=== PATIENT | female | born 1990 | race Two or more races ===

== ENCOUNTER 2017-05-15 08:14 | Day surgery (SDC) | payer OTHER ==
[~2017-05-15 08:14] MED LIST: CLINDAMYCIN 600 MG/D5W (PMX) 50 ML IVPB; SOD CHLORIDE 0.9% 1,000 ML IV
[2017-05-15] MEDS ORDERED: FENTAnyl 50 MCG/ML VIAL (12:33)
[2017-05-15] MEDS ORDERED: HYDROmorphONE (0.2 MG/ML) 10ML SYG IV ×3 (13:00)
[2017-05-15] MEDS ORDERED: DIPHENHYDRAMINE 50 MG INJ IV (13:00)
[2017-05-15] MEDS ORDERED: ROCURONIUM 50 MG INJ (13:00)
[2017-05-15] MEDS ORDERED: SUGAMMADEX SODIUM 200 MG/2 ML VIAL IV (13:00)
[2017-05-15] MEDS ORDERED: ONDANSETRON 4 MG INJ IV (13:00)
[2017-05-15] MEDS ORDERED: FENTAnyl 50 MCG/ML VIAL IV ×2 (13:00)
[2017-05-15] MEDS ORDERED: PROPOFOL 20 ML (13:00)
[2017-05-15] MEDS ORDERED: CLINDAMYCIN 900 MG/D5W (PMX) 50 ML IVPB (13:00)
[2017-05-15] MEDS ORDERED: SUCCINYLCHOLINE CHLORIDE 100 MG/5 ML SYG IV (13:00)
[2017-05-15] MEDS ORDERED: MEPERIDINE 25 MG INJ IV (13:00)
[2017-05-15] MEDS ORDERED: LIDOCAINE 2% (SDV) 5 ML INJ (13:00)
[2017-05-15] MEDS ORDERED: METOCLOPRAMIDE 10 MG INJ IV (13:00)
[2017-05-15] MEDS ORDERED: HYDROCODONE/APAP (5/325) TAB PO (13:30)
[2017-05-15] MEDS: BUPIVACAINE 0.25% (MPF) 30 ML INJ (13:33)
== END 2017-05-15 15:40 | disposition home or self-care (01) ==
LOC: SDS 08:14
DX: Q89.2 Congenital malformations of other endocrine glands (principal); E66.9 Obesity, unspecified; Z68.32 Body mass index [BMI] 32.0-32.9, adult
CPT/HCPCS: 60280; 87070; 87075; 88305